=== PATIENT | female | born 1980 | race Caucasian/White ===

== ENCOUNTER 2024-01-26 06:31 | Emergency (ER) | payer BC ==
[~2024-01-26] VITALS: Ht 165.1 cm; Wt 84.1 kg
[~2024-01-26 06:31] MED LIST: PRINIVIL10 MG PO; ZOLOFT 50MG50 MG PO; ZYRTEC 10MG10 MG PO
[2024-01-26 06:35] VITALS: TEMP 98
[2024-01-26 06:59] LABS: BASO % 0.2 % (0.0-2.0); EOS % 0.3 % (0.0-4.0); GRAN # 4.8 K/mm3 (1.4-6.5); GRAN % 76.7 % (42.2-75.2); HEMATOCRIT 39.8 % (37.0-47.0); HEMOGLOBIN 13.5 g/dl (12.5-16.0); LYMPH % 15.2 % (20.0-51.0); MEAN CELL VOLUME 95 fl (80.0-100.0); MEAN CORPUSCULAR HEMOGLOBIN 32 pg (27-31); MEAN CORPUSCULAR HGB CONC 34 g/dl (33.0-37.0); MEAN PLATELET VOLUME 10.7 fl (7.4-10.4); MONO # 0.5 K/mm3 (0.1-0.6); MONO % 7.4 % (1.7-9.3); PLATELET COUNT 231 K/mm3 (130-400); RED BLOOD COUNT 4.18 M/mm3 (4.10-5.30); REDCELL DISTRIBUTION WIDTH-CV 12.6 % (11.5-14.5)
[2024-01-26] MEDS ORDERED: Ondansetron 4 MG/2 ML VIAL IV ONE (07:00)
[2024-01-26] MEDS ORDERED: NS 1,000 ML IV ONE (07:00)
[2024-01-26] MEDS ORDERED: Morphine 4 MG/ML VIAL IV ONE ×2 (07:00→07:15)
[2024-01-26 07:19] LABS: ALBUMIN 3.8 g/dL (3.5-5.0); BILIRUBIN,TOTAL 0.8 mg/dL (0.2-1.2); CALCIUM 9.6 mg/dL (8.4-10.2); CREATININE, serum 0.78 mg/dL (0.57-1.11); POTASSIUM 3.5 mEq/L (3.5-4.5); TOTAL PROTEIN 6.9 g/dl (6.2-8.1)
[2024-01-26] MEDS ORDERED: NS 100 ML IV SCH (07:48)
[2024-01-26] MEDS ORDERED: Iohexol 300 - 100 ML VIAL IV ONE (07:48)
[2024-01-26 08:09] LABS: URINE APPEARANCE CLEAR (CLEAR/HAZY); URINE BLOOD NEGATIVE (NEGATIVE); URINE COLOR YELLOW (YELLOW); URINE GLUCOSE NEGATIVE (NEGATIVE); URINE KETONE NEGATIVE (NEGATIVE); URINE NITRATE NEGATIVE (NEGATIVE); URINE PROTEIN(semi-quant) NEGATIVE (NEGATIVE); URINE UROBILINOGEN 0.2 E.U/dL (0.2-1.0)
[2024-01-26 08:20] LABS: COLLECTION METHOD CLEAN CATCH
[2024-01-26] MEDS ORDERED: Ketorolac 15 MG/ML VIAL IV ONE (08:30)
[2024-01-26] MEDS ORDERED: Albuterol/Ipratropium 3 MG-0.5 MG/3 ML Neb Soln IH ONE (09:00)
[2024-01-26] MEDS ORDERED: NORCO 325 MG-51 TAB PO (09:03)
[2024-01-26 09:15] VITALS: BP 140/89; PULSE 84
== END 2024-01-26 09:34 | disposition home or self-care (01) ==
LOC: COL.ER 06:31
PROVIDERS: Emergency Medicine; Family Medicine
DX: R10.9 Unspecified abdominal pain (principal); F17.200 Nicotine dependence, unspecified, uncomplicated
CPT/HCPCS: J1885; J2270; J2405; J7030; Q9967